=== PATIENT | female | born 1985 | race Caucasian/White ===

== ENCOUNTER 2020-02-17 20:49 | Emergency (ER) | payer SELFPAY ==
[2020-02-18 01:25] VITALS: TEMP 98.3
[2020-02-18 01:29] VITALS: BP 112/63; O2SAT 97
== END 2020-02-18 00:57 | disposition home or self-care (01) ==
LOC: ER 20:49
DX: G40.509 Epileptic seizures related to external causes, not intractable, without status epilepticus (principal)
CPT/HCPCS: 36415; 51702; 80048; 80076; 80307; 81003; 81025; 83690; 83735; 85025; 96360; 96361; 99284; J7040

== ENCOUNTER 2020-02-23 19:56 | Inpatient (IN) | payer SELFPAY ==
--- OUTSIDE RECORDS SUMMARY | 2020-02-23 20:02 | XMS REPORT ---
:1985 Author Organization [facility] t Address [address] [place] [address] Care Team Providers Name Role Phone DR BEN RAMIRES Unavailable Unavailable DR Lisbeth WILLIAMSON Unavailable Unavailable DR Samantha DILLON Unavailable Unavailable DR Earl DILLON Unavailable DR Earl LORD Unavailable RK, Unavailable Unavailable Problems This patient has no known problems. Allergies, Adverse Reactions, Alerts This patient has no known allergies or adverse reactions. Medications This patient has no known medications. Encounters Start End Encounter Admission Attending Care Care Encounter Date/Time Date/Time Type Type Clinicians Facility Department ID 2019-12-29 2019-12-31 Outpatient E CAROL RAMIRES [facility] [id number] 07:46:00 11:03:00 BEN 2019-12-21 2019-12-21 Emergency E TERI [facility] [id number] 16:13:00 21:40:00 EVER 2019-11-24 2019-11-24 Emergency E JUDI [facility] [id number] 13:39:00 13:39:00 2018-08-01 2018-08-01 Emergency E MAGALY DILLON [facility] [id number] 09:51:00 12:30:00 2018-06-09 2018-06-09 Emergency E TERI [facility] [id number] 16:29:00 19:00:00 EVER 2018-05-30 2018-05-30 Emergency E WILMA [facility] [id number] 14:36:00 15:47:00 ALINA 2018-04-19 2018-04-19 Emergency E POP [facility] [id number] 11:42:00 13:57:00 JORGE 2017-12-26 2017-12-26 Emergency E POP [facility] [id number] 22 08:16:00 12:34:00 JORGE Results Test Description Test Time Test Comments Text Results Atomic Results Result Comments URINE MONOCLONAL 2019-12-30 21:15:00 Test Item Value Reference Range Comments PREG UR (test code = PGU) NEGATIVE NEGATIVE [id number] 06:58:00 Test Item Value Reference Range Comments Hb A1C % (test code = HBA) 5.4 % 4.2-6.3 LIPID [id number] 06:56:00 Test Item Value Reference Range Comments CHOLESTROL (test code = 44A) 202 mg/dL 140-200 TRIGLYCERI (test code = 42B) 116 mg/dL <=149 HDL (test code = 83D) 55.0 mg/dL 40.0-60.0 LDL (test code = 34B) 132 mg/dL <=99 CHL/HDL (test code = CHR) 3.7 0.0-3.4 CBC (INCLUDES AUTOMATED DIFFERENTIAL)2019-12-30 06:44:00 Test Item Value Reference Range Comments WBC (test code = WBC) 7.6 10\S\3/uL 4.5-11.0 RBC (test code = RBC) 4.00 10\S\6/uL 4.30-5.70 HGB (test code = HBG) 11.9 g/dL 12.0-15.5 HCT (test code = HCT) 37.1 % 35.0-44.0 MCV (test code = MCV) 92.8 fL 81.0-99.0 MCH (test code = MCH) 29.8 pg 27.0-31.0 MCHC (test code = MCHC) 32.1 g/dL 32.0-36.0 RDW (test code = RDW) 13.3 % 11.5-14.5 PLT (test code = PLT) 283 10\S\3/uL 130-400 MPV (test code = MPV) 10.4 fL 9.4-12.4 NEUTROP # (test code = NE#) 3.1 10\S\3/uL 1.6-8.0 LYMPH # (test code = LY#) 3.2 10\S\3/uL 1.1-3.5 MONOCYTE # (test code = MO#) 0.6 10\S\3/uL 0.0-1.1 EOSINOPH # (test code = EO#) 0.5 10\S\3/uL 0.0-0.7 BASOPHIL # (test code = BA#) 0.1 10\S\3/uL 0.0-0.3 IG # (test code = IG#) 0.02 10\S\3/uL 0.00-0.06 NRBC # (test code = NRBC#) 0.00 10\S\3/uL 0.00-0.01 NEUTROPH % (test code = NE%) 41.3 % 35.0-73.0 LYMPH % (test code = LY%) 42.7 % 20.0-55.0 MONO % (test code = MO%) 8.2 % 2.5-10.0 EOSINOPH % (test code = EO%) 6.2 % 0.0-5.0 BASOPHIL % (test code = BA%) 1.3 % 0.0-2.0 IG % (test code = IG%) 0.3 % 0.0-0.8 NRBC% (test code = NRBC%) 0.0 % 0.0-0.2 MANDIFF (test code = MDIFF) NO NO RBC MORPH (test code = RBCMOR) NORMAL CARDIAC [id number] 22:13:00 Test Item Value Reference Range Comments TROPONIN I (test code = A84) <0.015 ng/mL 0.000-0.045 CARDIAC [id number] 15:17:00 Test Item Value Reference Range Comments TROPONIN I (test code = A84) <0.015 ng/mL 0.000-0.045 [id number] 11:12:00 Test Item Value Reference Range Comments Hb A1C % (test code = HBA) 5.8 % 4.2-6.3 LIPID [id number] 11:07:00 Test Item Value Reference Range Comments CHOLESTROL (test code = 44A) 203 mg/dL 140-200 TRIGLYCERI (test code = 42B) 90 mg/dL <=149 HDL (test code = 83D) 60.0 mg/dL 40.0-60.0 LDL (test code = 34B) 127 mg/dL <=99 CHL/HDL (test code = CHR) 3.4 0.0-3.4 GLUCOMETER GLUCOSE- LAB USE [id number] 09:08:00 Test Item Value Reference Range Comments GLUCOMETER (test code = GMG) 91 mg/dL 70-100 DRUGS OF [id number] 08:34:00 Test Item Value Reference Range Comments DRUG SCRN (test code = HDOA) URINE DRUG SCREEN This is an unconfirmed screening result and should not be used for non-medical purposes CANNABINOD (test code = 88C) Negative NEGATIVE AMPHETAMINE (test code = Negative NEGATIVE 84A) BENZODIAZP (test code = 86A) Negative NEGATIVE BARBITURAT (test code = 85A) Negative NEGATIVE OPIATES (test code = 92B) Negative NEGATIVE COCAINE (test code = 87A) Negative NEGATIVE PHENCYCLID (test code = 66A) Negative NEGATIVE METHADONE (test code = 64A) Negative NEGATIVE DOAH (test code = DOAH.) URINE DRUG SCREEN Cut-off values are as follows: Cannabinoids 50 ng/mL Cocaine 300 ng/mL Amphetamines 1000 ng/mL Phencyclidine 25 ng/mL Benzodiazepines 200 ng.mL Methadone 300 ng/mL Barbiturates 200 ng/mL Opiates 2000 ng/mL [id number] 08:29:00 Test Item Value Reference Range Comments COLOR (test code = COLU) YELLOW YELLOW CLARITY (test code = CLA) CLEAR CLEAR GLUCOSE UR (test code = UA GLUCOSE) NEGATIVE NEGATIVE BILI UR (test code = BILE) NEGATIVE NEGATIVE KETONES UR (test code = TEO) NEGATIVE NEGATIVE SP GRAVITY (test code = SPGR) 1.024 1.005-1.030 PH UR (test code = PH) 5.5 4.5-8.0 PROTEIN UR (test code = PU) NEGATIVE NEGATIVE UROBIL UR (test code = UROQ) 0.2 EU/dL 0.2-1.0 NITRITE UR (test code = NITRITE) NEGATIVE NEGATIVE BLOOD UR (test code = UA BLOOD) NEGATIVE NEGATIVE LEUK ES UR (test code = LEUK) NEGATIVE NEGATIVE BRAIN NATRIURETIC [id number] 07:17:00 Test Item Value Reference Range Comments proBNP (test code = PBNP) 25 pg/mL 0-125 COMPREHENSIVE METABOLIC [id number] 07:15:00 Test Item Value Reference Range Comments GLUCOSE (test code = 06D) 99 mg/dL 75-100 SODIUM (test code = 01A) 139 mmol/L 136-145 POTASSIUM (test code = 01B) 3.4 mmol/L 3.6-5.1 CHLORIDE (test code = 04A) 109 mmol/L 98-107 CO2 (test code = 02A) 23 mmol/L 22-32 ANION GAP (test code = ANG) 10.4 mmol/L BUN (test code = 05D) 17 mg/dL 7-18 CREATININE (test code = 03E) 1.0 mg/dL 0.4-1.1 BUN/CREA (test code = BCR) 17 12-20 CALCIUM (test code = 09D) 9.1 mg/dL 8.3-9.5 BILI TOTAL (test code = 11A) 0.3 mg/dL 0.2-1.0 PROTEIN (test code = 07D) 7.1 g/dL 6.4-8.2 ALBUMIN (test code = 08D) 4.0 g/dL 3.5-4.8 GLOBULIN (test code = GLB) 3.1 g/dL 1.5-3.8 ALB/GLOB (test code = AGRR) 1.3 1.0-2.6 ALK PHOS (test code = 35A) 64 IU/L 42-121 AST (test code = 30A) 19 IU/L <=42 ALT (test code = 31A) 39 IU/L <=78 TROPONIN [id number] 07:15:00 Test Item Value Reference Range Comments TROPONIN I (test code = A84) <0.015 ng/mL 0.000-0.045 PRO TIME AND [id number] 07:10:00 Test Item Value Reference Range Comments PT (test code = TT) 12.3 s 9.8-13.6 INR (test code = INR) 1.1 INRH (test code = INRH) SUGGESTED THERAPEUTIC RANGE FOR INR: 2.5 - 3.5 For Patients with Prosthetic Valves or Patients with recurrent Thromboembolic Events 2.0 - 3.0 For Most Other Applications PTT (test code = PTT) 40.6 s 20.2-38.0 PTTH (test code = PTTH) To monitor the effectiveness of heparin, we offer the Anti-Xa (Heparin Assay). It can be used for either unfractionated or LMW Heparin. Order Code is ANTI-XA [id number] 07:10:00 Test Item Value Reference Range Comments D-DIMER (test code = DDI) 248 ng/mL D-DU 0-234 D-DIMER COMMENT (test code = *Level to rule out DVT or PE: DDCOM) <235 ng/mL D-DU* CBC (INCLUDES AUTOMATED DIFFERENTIAL)2019-12-29 07:05:00 Test Item Value Reference Range Comments WBC (test code = WBC) 8.5 10\S\3/uL 4.5-11.0 RBC (test code = RBC) 4.04 10\S\6/uL 4.30-5.70 HGB (test code = HBG) 11.8 g/dL 12.0-15.5 HCT (test code = HCT) 36.1 % 35.0-44.0 MCV (test code = MCV) 89.4 fL 81.0-99.0 MCH (test code = MCH) 29.2 pg 27.0-31.0 MCHC (test code = MCHC) 32.7 g/dL 32.0-36.0 RDW (test code = RDW) 13.4 % 11.5-14.5 PLT (test code = PLT) 311 10\S\3/uL 130-400 MPV (test code = MPV) 10.6 fL 9.4-12.4 NEUTROP # (test code = NE#) 3.8 10\S\3/uL 1.6-8.0 LYMPH # (test code = LY#) 3.4 10\S\3/uL 1.1-3.5 MONOCYTE # (test code = MO#) 0.7 10\S\3/uL 0.0-1.1 EOSINOPH # (test code = EO#) 0.4 10\S\3/uL 0.0-0.7 BASOPHIL # (test code = BA#) 0.1 10\S\3/uL 0.0-0.3 IG # (test code = IG#) 0.02 10\S\3/uL 0.00-0.06 NRBC # (test code = NRBC#) 0.00 10\S\3/uL 0.00-0.01 NEUTROPH % (test code = NE%) 44.7 % 35.0-73.0 LYMPH % (test code = LY%) 40.4 % 20.0-55.0 MONO % (test code = MO%) 8.7 % 2.5-10.0 EOSINOPH % (test code = EO%) 4.9 % 0.0-5.0 BASOPHIL % (test code = BA%) 1.1 % 0.0-2.0 IG % (test code = IG%) 0.2 % 0.0-0.8 NRBC% (test code = NRBC%) 0.0 % 0.0-0.2 MANDIFF (test code = MDIFF) NO NO RBC MORPH (test code = RBCMOR) NORMAL [id number] 23:08:00 Test Item Value Reference Range Comments LITHIUM (test code = LI) 0.50 mmol/L 0.60-1.50 LIH (test code = LIH) LITHIUM THERAPEUTIC RANGE Acute cecilia: 1.0-1.5 mmol/L Mono-term control 0.6-1.2 mmol/L Toxic level: > 2.0 mmol/L DRUGS OF [id number] 19:39:00 Test Item Value Reference Range Comments DRUG SCRN (test code = HDOA) URINE DRUG SCREEN This is an unconfirmed screening result and should not be used for non-medical purposes CANNABINOD (test code = 88C) Negative NEGATIVE AMPHETAMINE (test code = Negative NEGATIVE 84A) BENZODIAZP (test code = 86A) Negative NEGATIVE BARBITURAT (test code = 85A) Negative NEGATIVE OPIATES (test code = 92B) Negative NEGATIVE COCAINE (test code = 87A) Negative NEGATIVE PHENCYCLID (test code = 66A) Negative NEGATIVE METHADONE (test code = 64A) Negative NEGATIVE DOAH (test code = DOAH.) URINE DRUG SCREEN Cut-off values are as follows: Cannabinoids 50 ng/mL Cocaine 300 ng/mL Amphetamines 1000 ng/mL Phencyclidine 25 ng/mL Benzodiazepines 200 ng.mL Methadone 300 ng/mL Barbiturates 200 ng/mL Opiates 2000 ng/mL [id number] 19:34:00 Test Item Value Reference Range Comments COLOR (test code = COLU) YELLOW YELLOW CLARITY (test code = CLA) CLEAR CLEAR GLUCOSE UR (test code = UA GLUCOSE) NEGATIVE NEGATIVE BILI UR (test code = BILE) NEGATIVE NEGATIVE KETONES UR (test code = TEO) NEGATIVE NEGATIVE SP GRAVITY (test code = SPGR) 1.019 1.005-1.030 PH UR (test code = PH) 7.0 4.5-8.0 PROTEIN UR (test code = PU) NEGATIVE NEGATIVE UROBIL UR (test code = UROQ) 0.2 EU/dL 0.2-1.0 NITRITE UR (test code = NITRITE) NEGATIVE NEGATIVE BLOOD UR (test code = UA BLOOD) NEGATIVE NEGATIVE LEUK ES UR (test code = LEUK) NEGATIVE NEGATIVE CARDIAC [id number] 18:16:00 Test Item Value Reference Range Comments TROPONIN I (test code = A84) <0.015 ng/mL 0.000-0.045 PRO TIME AND [id number] 17:42:00 Test Item Value Reference Range Comments PT (test code = TT) 12.5 s 9.8-13.6 INR (test code = INR) 1.1 INRH (test code = INRH) SUGGESTED THERAPEUTIC RANGE FOR INR: 2.5 - 3.5 For Patients with Prosthetic Valves or Patients with recurrent Thromboembolic Events 2.0 - 3.0 For Most Other Applications PTT (test code = PTT) 37.7 s 20.2-38.0 PTTH (test code = PTTH) To monitor the effectiveness of heparin, we offer the Anti-Xa (Heparin Assay). It can be used for either unfractionated or LMW Heparin. Order Code is ANTI-XA SERUM [id number] 17:20:00 Test Item Value Reference Range Comments PREG SRM (test code = PGS) NEGATIVE NEGATIVE COMPREHENSIVE METABOLIC [id number] 17:17:00 Test Item Value Reference Range Comments GLUCOSE (test code = 06D) 100 mg/dL 75-100 SODIUM (test code = 01A) 140 mmol/L 136-145 POTASSIUM (test code = 01B) 3.8 mmol/L 3.6-5.1 CHLORIDE (test code = 04A) 109 mmol/L 98-107 CO2 (test code = 02A) 26 mmol/L 22-32 ANION GAP (test code = ANG) 8.8 mmol/L BUN (test code = 05D) 15 mg/dL 7-18 CREATININE (test code = 03E) 1.0 mg/dL 0.4-1.1 BUN/CREA (test code = BCR) 15 12-20 CALCIUM (test code = 09D) 9.9 mg/dL 8.3-9.5 BILI TOTAL (test code = 11A) 0.8 mg/dL 0.2-1.0 PROTEIN (test code = 07D) 7.2 g/dL 6.4-8.2 ALBUMIN (test code = 08D) 4.0 g/dL 3.5-4.8 GLOBULIN (test code = GLB) 3.2 g/dL 1.5-3.8 ALB/GLOB (test code = AGRR) 1.2 1.0-2.6 ALK PHOS (test code = 35A) 69 IU/L 42-121 AST (test code = 30A) 23 IU/L <=42 ALT (test code = 31A) 40 IU/L <=78 AMYLASE AND [id number] 17:17:00 Test Item Value Reference Range Comments AMYLASE (test code = 10A) 58 U/L 28-100 LIPASE (test code = 60A) 81 IU/L 73-393 CBC (INCLUDES AUTOMATED DIFFERENTIAL)2019-12-21 17:03:00 Test Item Value Reference Range Comments WBC (test code = WBC) 7.4 10\S\3/uL 4.5-11.0 RBC (test code = RBC) 4.39 10\S\6/uL 4.30-5.70 HGB (test code = HBG) 12.9 g/dL 12.0-15.5 HCT (test code = HCT) 39.3 % 35.0-44.0 MCV (test code = MCV) 89.5 fL 81.0-99.0 MCH (test code = MCH) 29.4 pg 27.0-31.0 MCHC (test code = MCHC) 32.8 g/dL 32.0-36.0 RDW (test code = RDW) 13.2 % 11.5-14.5 PLT (test code = PLT) 297 10\S\3/uL 130-400 MPV (test code = MPV) 10.7 fL 9.4-12.4 NEUTROP # (test code = NE#) 4.0 10\S\3/uL 1.6-8.0 LYMPH # (test code = LY#) 2.3 10\S\3/uL 1.1-3.5 MONOCYTE # (test code = MO#) 0.6 10\S\3/uL 0.0-1.1 EOSINOPH # (test code = EO#) 0.3 10\S\3/uL 0.0-0.7 BASOPHIL # (test code = BA#) 0.1 10\S\3/uL 0.0-0.3 IG # (test code = IG#) 0.01 10\S\3/uL 0.00-0.06 NRBC # (test code = NRBC#) 0.00 10\S\3/uL 0.00-0.01 NEUTROPH % (test code = NE%) 54.7 % 35.0-73.0 LYMPH % (test code = LY%) 31.1 % 20.0-55.0 MONO % (test code = MO%) 8.4 % 2.5-10.0 EOSINOPH % (test code = EO%) 4.3 % 0.0-5.0 BASOPHIL % (test code = BA%) 1.4 % 0.0-2.0 IG % (test code = IG%) 0.1 % 0.0-0.8 NRBC% (test code = NRBC%) 0.0 % 0.0-0.2 MANDIFF (test code = MDIFF) NO NO RBC MORPH (test code = RBCMOR) NORMAL DRUGS OF [id number] 11:59:00 Test Item Value Reference Range Comments DRUG SCRN (test code = HDOA) URINE DRUG SCREEN This is an unconfirmed screening result and should not be used for non-medical purposes CANNABINOD (test code = 88C) Negative NEGATIVE AMPHETAMINE (test code = Negative NEGATIVE 84A) BENZODIAZP (test code = 86A) Negative NEGATIVE BARBITURAT (test code = 85A) Negative NEGATIVE OPIATES (test code = 92B) Negative NEGATIVE COCAINE (test code = 87A) Negative NEGATIVE PHENCYCLID (test code = 66A) Negative NEGATIVE METHADONE (test code = 64A) Negative NEGATIVE DOAH (test code = DOAH) URINE DRUG CREEN CUT OFF VALUES Amphetamines 1000 ng/mL Barbituates 300 ng/mL Benzodiazepines 300 ng/mL Cocaine 300 ng/mL Opiates 300 ng/mL Phencyclidine 25 ng/mL THC 50 ng/mL Tricyclic Antidepressants 1000 ng/mL CARDIAC [id number] 11:08:00 Test Item Value Reference Range Comments TROPONIN I (test code = A84) <0.015 ng/mL 0.000-0.045 CKMB (test code = A49) <1.0 ng/mL <=3.6 CPK (test code = 32A) 62 IU/L 26-192 COMPREHENSIVE METABOLIC [id number] 11:07:00 Test Item Value Reference Range Comments GLUCOSE (test code = 06D) 82 mg/dL 75-100 SODIUM (test code = 01A) 142 mmol/L 136-145 POTASSIUM (test code = 01B) 3.7 mmol/L 3.6-5.1 CHLORIDE (test code = 04A) 108 mmol/L 98-107 CO2 (test code = 02A) 23 mmol/L 22-32 ANION GAP (test code = ANG) 14.7 mmol/L BUN (test code = 05D) 10 mg/dL 7-18 CREATININE (test code = 03E) 0.8 mg/dL 0.4-1.1 BUN/CREA (test code = BCR) 12 12-20 CALCIUM (test code = 09D) 9.3 mg/dL 8.3-9.5 BILI TOTAL (test code = 11A) 0.4 mg/dL 0.2-1.0 PROTEIN (test code = 07D) 6.7 g/dL 6.4-8.2 ALBUMIN (test code = 08D) 4.0 g/dL 3.5-4.8 GLOBULIN (test code = GLB) 2.7 g/dL 1.5-3.8 ALB/GLOB (test code = AGRR) 1.5 1.0-2.6 ALK PHOS (test code = 35A) 55 IU/L 42-121 AST (test code = 30A) 11 IU/L <=42 ALT (test code = 31A) 20 IU/L <=78 XR CHEST 1 VIEW [id number] 10:58:26Portable AP chest, 1 viewLocation Code: [id number] HISTORY: [id number]: DyspneaCOMPARISON: 04/19/18COMMENT: The lungs are clear and well inflated. The costophrenic angles are sharp. Thecardiomediastinalsilhouette is unremarkable. The bones are intact.IMPRESSION: No acute [id number] 10:56:00 Test Item Value Reference Range Comments COLOR (test code = COLU) YELLOW YELLOW CLARITY (test code = CLA) CLEAR CLEAR GLUCOSE UR (test code = UA GLUCOSE) NEGATIVE NEGATIVE BILI UR (test code = BILE) NEGATIVE NEGATIVE KETONES UR (test code = TEO) NEGATIVE NEGATIVE SP GRAVITY (test code = SPGR) 1.012 1.005-1.030 PH UR (test code = PH) 7.5 4.5-8.0 PROTEIN UR (test code = PU) NEGATIVE NEGATIVE UROBIL UR (test code = UROQ) 0.2 EU/dL 0.2-1.0 NITRITE UR (test code = NITRITE) NEGATIVE NEGATIVE BLOOD UR (test code = UA BLOOD) NEGATIVE NEGATIVE LEUK ES UR (test code = LEUK) NEGATIVE NEGATIVE URINE [id number] 10:52:00 Test Item Value Reference Range Comments PREG UR (test code = PGU) NEGATIVE NEGATIVE CBC (INCLUDES AUTOMATED DIFFERENTIAL)2018-08-01 10:50:00 Test Item Value Reference Range Comments WBC (test code = WBC) 5.9 10\S\3/uL 4.5-11.0 RBC (test code = RBC) 3.84 10\S\6/uL 4.30-5.70 HGB (test code = HBG) 11.9 g/dL 12.0-15.5 HCT (test code = HCT) 35.5 % 35.0-44.0 MCV (test code = MCV) 92.4 fL 81.0-99.0 MCH (test code = MCH) 31.0 pg 27.0-31.0 MCHC (test code = MCHC) 33.5 g/dL 32.0-36.0 RDW (test code = RDW) 12.4 % 11.5-14.5 PLT (test code = PLT) 262 10\S\3/uL 130-400 MPV (test code = MPV) 12.2 fL 9.4-12.4 NEUTROP # (test code = NE#) 2.9 10\S\3/uL 1.6-8.0 LYMPH # (test code = LY#) 2.4 10\S\3/uL 1.1-3.5 MONOCYTE # (test code = MO#) 0.5 10\S\3/uL 0.0-1.1 EOSINOPH # (test code = EO#) 0.1 10\S\3/uL 0.0-0.7 BASOPHIL # (test code = BA#) 0.0 10\S\3/uL 0.0-0.3 IG # (test code = IG#) 0.01 10\S\3/uL 0.00-0.06 NRBC # (test code = NRBC#) 0.00 10\S\3/uL 0.00-0.01 NEUTROPH % (test code = NE%) 48.8 % 35.0-73.0 LYMPH % (test code = LY%) 40.5 % 20.0-55.0 MONO % (test code = MO%) 7.6 % 2.5-10.0 EOSINOPH % (test code = EO%) 2.2 % 0.0-5.0 BASOPHIL % (test code = BA%) 0.7 % 0.0-2.0 IG % (test code = IG%) 0.2 % 0.0-0.8 NRBC% (test code = NRBC%) 0.0 % 0.0-0.2 MANDIFF (test code = MDIFF) NO NO RBC MORPH (test code = RBCMOR) NORMAL CT HEAD W/O [id number] 10:45:31CT brain without contrast.Location code: [id number] HISTORY: R55: SYNCOPE AND COLLAPSE COMPARISON:02/02/2017TECHNIQUE: Routine unenhanced axial imaging of the brain was performed. Coronal and sagitt al reformatted images were obtained, as well. Automaticexposure control was utilized. Total DLP: 858 mGycmFINDINGS: There is no acute intracranial hemorrhage or extra-axial collection.There is no hydrocephalus, midline shift, or space occupying mass. Goodman-whitematter differentiation is well preservedwith no definite CT evidence of anacute infarct. The cranial vault and skull base are intact. Theparanasal sinuses and mastoidair cells are pneumatized and well aerated. IMPRESSION: No acute intracranial abnormality.CT ABDOMEN AND PELVIS WITH [id number] 19:01:49LOCATION: [id number]: 33-year-old female with abdominal pain.COMMENT: Field 3Axial CT imaging of this patient's abdomen and pelvis was obtained during andafter IV contrast injection. Coronal and sagittal soft tissue reconstructionswere included. An older examination of 04/19/18 is available for comparison.One or more of the following dose reduction techniques are used: Automatedexposure control, adjustment of the mA and/or kV according the patient size,and/or utilization of iterative reconstruction technique.DLP: 2616 mGy-cmCONTRAST: 100 mL of Omnipaque 300 nonionic contrast was injected until a veinof the left hand. Serum creatinine level was 0.8.FINDINGS:The lung bases are clear. The cardiac silhouette is unremarkable.The liver, spleen, pancreas, adrenal glands, kidneys, and gallbladder areunremarkable. Bilateral renal function is seen on the delayed study.The upper intestinal tract, small intestine, appendix, and colon areunremarkable.There is no ascites or adenopathy present.In the pelvis the urinary bladder, uterus, and ovaries are unremarkable.The vascular anatomy is unremarkable.The musculoskeletal anatomy is unremarkable.IMPRESSION:Unremarkable CT examination of the abdomen and pelvis. AMYLASE AND [id number] 17:53:00 Test Item Value Reference Range Comments AMYLASE (test code = 10A) 48 U/L 28-100 LIPASE (test code = 60A) 109 IU/L 73-393 COMPREHENSIVE METABOLIC [id number] 17:53:00 Test Item Value Reference Range Comments GLUCOSE (test code = 06D) 91 mg/dL 75-100 SODIUM (test code = 01A) 141 mmol/L 136-145 POTASSIUM (test code = 01B) 3.6 mmol/L 3.6-5.1 CHLORIDE (test code = 04A) 108 mmol/L 98-107 CO2 (test code = 02A) 23 mmol/L 22-32 ANION GAP (test code = ANG) 13.6 mmol/L BUN (test code = 05D) 12 mg/dL 7-18 CREATININE (test code = 03E) 0.8 mg/dL 0.4-1.1 BUN/CREA (test code = BCR) 16 12-20 CALCIUM (test code = 09D) 9.4 mg/dL 8.3-9.5 BILI TOTAL (test code = 11A) 0.5 mg/dL 0.2-1.0 PROTEIN (test code = 07D) 7.1 g/dL 6.4-8.2 ALBUMIN (test code = 08D) 4.0 g/dL 3.5-4.8 GLOBULIN (test code = GLB) 3.1 g/dL 1.5-3.8 ALB/GLOB (test code = AGRR) 1.3 1.0-2.6 ALK PHOS (test code = 35A) 67 IU/L 42-121 AST (test code = 30A) 16 IU/L <=42 ALT (test code = 31A) 22 IU/L <=78 [id number] 17:48:00 Test Item Value Reference Range Comments MAGNESIUM (test code = 48A) 1.8 mg/dL 1.8-2.4 DRUGS OF [id number] 17:48:00 Test Item Value Reference Range Comments DRUG SCRN (test code = HDOA) URINE DRUG SCREEN This is an unconfirmed screening result and should not be used for non-medical purposes CANNABINOD (test code = 88C) Negative NEGATIVE AMPHETAMINE (test code = Negative NEGATIVE 84A) BENZODIAZP (test code = 86A) Negative NEGATIVE BARBITURAT (test code = 85A) Negative NEGATIVE OPIATES (test code = 92B) Negative NEGATIVE COCAINE (test code = 87A) Negative NEGATIVE PHENCYCLID (test code = 66A) Negative NEGATIVE METHADONE (test code = 64A) Negative NEGATIVE DOAH (test code = DOAH) URINE DRUG SCREEN Cut-off values are as follows: ---- Cannabinoids 50 ng/mL Cocaine 300 ng/mL Amphetamines 1000 ng/mL Phencyclidine 25 ng/mL Benzodiazepines 200 ng.mL Methadone 300 ng/mL Barbiturates 200 ng/mL Opiates 2000 ng/mL PRO TIME AND [id number] 17:47:00 Test Item Value Reference Range Comments PT (test code = TT) 12.2 s 9.8-13.6 INR (test code = INR) 1.1 INRH (test code = INRH) SUGGESTED THERAPEUTIC RANGE FOR INR: 2.5 - 3.5 For Patients with Prosthetic Valves or Patients with recurrent Thromboembolic Events 2.0 - 3.0 For Most Other Applications PTT (test code = PTT) 34.0 s 20.2-38.0 PTTH (test code = PTTH) To monitor the effectiveness of heparin, we offer the Anti-Xa (Heparin Assay). It can be used for either unfractionated or LMW Heparin. Order Code is ANTI-XA SERUM [id number] 17:46:00 Test Item Value Reference Range Comments PREG SRM (test code = PGS) NEGATIVE NEGATIVE URINALYSIS WITH [id number] 17:43:00 Test Item Value Reference Range Comments COLOR (test code = COLU) YELLOW YELLOW CLARITY (test code = CLA) CLOUDY CLEAR GLUCOSE UR (test code = UA GLUCOSE) NEGATIVE NEGATIVE BILI UR (test code = BILE) NEGATIVE NEGATIVE KETONES UR (test code = TEO) NEGATIVE NEGATIVE SP GRAVITY (test code = SPGR) 1.023 1.005-1.030 PH UR (test code = PH) 8.0 4.5-8.0 PROTEIN UR (test code = PU) NEGATIVE NEGATIVE UROBIL UR (test code = UROQ) 0.2 EU/dL 0.2-1.0 NITRITE UR (test code = NITRITE) NEGATIVE NEGATIVE BLOOD UR (test code = UA BLOOD) NEGATIVE NEGATIVE LEUK ES UR (test code = LEUK) NEGATIVE NEGATIVE WBC UR (test code = UWBC) 0 /HPF 0-5 RBC UR (test code = URBC) 0 /HPF 0-2 EPITH UR (test code = UEPC) FEW /LPF FEW BACTERIA UR (test code = UBACT) FEW /HPF NONE CAST UR (test code = CAST) /LPF NONE CRYSTAL UR (test code = CRYU) / LPF NONE MUCUS UR (test code = MUC) FEW / HPF NONE AMORPH UR (test code = LEONID) / HPF NONE TRICH UR (test code = UTRICH) /HPF NONE YEAST UR (test code = UY) /HPF NONE SPERM UR (test code = USPERM) /HPF NONE CBC (INCLUDES AUTOMATED DIFFERENTIAL)[id number] 17:39:00 Test Item Value Reference Range Comments WBC (test code = WBC) 9.0 10\S\3/uL 4.5-11.0 RBC (test code = RBC) 4.01 10\S\6/uL 4.30-5.70 HGB (test code = HBG) 12.6 g/dL 12.0-15.5 HCT (test code = HCT) 36.9 % 35.0-44.0 MCV (test code = MCV) 92.0 fL 81.0-99.0 MCH (test code = MCH) 31.4 pg 27.0-31.0 MCHC (test code = MCHC) 34.1 g/dL 32.0-36.0 RDW (test code = RDW) 12.8 % 11.5-14.5 PLT (test code = PLT) 293 10\S\3/uL 130-400 MPV (test code = MPV) 11.9 fL 9.4-12.4 NEUTROP # (test code = NE#) 5.3 10\S\3/uL 1.6-8.0 LYMPH # (test code = LY#) 2.6 10\S\3/uL 1.1-3.5 MONOCYTE # (test code = MO#) 0.7 10\S\3/uL 0.0-1.1 EOSINOPH # (test code = EO#) 0.4 10\S\3/uL 0.0-0.7 BASOPHIL # (test code = BA#) 0.1 10\S\3/uL 0.0-0.3 IG # (test code = IG#) 0.02 10\S\3/uL 0.00-0.06 NRBC # (test code = NRBC#) 0.00 10\S\3/uL 0.00-0.01 NEUTROPH % (test code = NE%) 58.7 % 35.0-73.0 LYMPH % (test code = LY%) 28.7 % 20.0-55.0 MONO % (test code = MO%) 7.4 % 2.5-10.0 EOSINOPH % (test code = EO%) 4.1 % 0.0-5.0 BASOPHIL % (test code = BA%) 0.9 % 0.0-2.0 IG % (test code = IG%) 0.2 % 0.0-0.8 NRBC% (test code = NRBC%) 0.0 % 0.0-0.2 MANDIFF (test code = MDIFF) NO NO RBC MORPH (test code = RBCMOR) NORMAL CT ABDOMEN AND PELVIS W/O [id number] 13:45:07CT abdomen and pelvis without intravenous contrast.Location Code: [id number] HISTORY: R10.11: RIGHT U PPER QUADRANT PAINCOMPARISON: NoneTechnique: Helical CT of the abdomen and pelvis was performed without injury iscontrast. Thin section axial, sagittal and coronal images were obtained. One ormore of the following dose reduction techniques were used: Automated exposurecontrol, adjustment of the mA andor KV according to patient size, and/orutilization of iterative reconstruction technique. DLP: 506.68 mGy-cm.FINDINGS:The lung bases are clear. The unenhanced liver, gallbladder, adrenal glands, kidneys, pancreas, andspleen are unremarkable.The unopacified loops of bowel demonstrate no focal thickening or dilatation.The appendix is visualized and is normal. There is no free peritoneal air orfluid. The abdominal aorta is normal in caliber and contour. There is noretroperitoneal mass or fluid collection. The urinary bladder is unremarkable.There is no pelvic mass or fluid collection. No evidence of diverticulitis.The bones, skin, and surrounding soft tissues are unremarkable.IMPRESSION: No acute intra-abdominal or pelvic pathology.AMYLASE AND [id number] 13:18:00 Test Item Value Reference Range Comments AMYLASE (test code = 10A) 45 U/L 28-100 LIPASE (test code = 60A) 80 IU/L 73-393 COMPREHENSIVE METABOLIC [id number] 13:18:00 Test Item Value Reference Range Comments GLUCOSE (test code = 06D) 94 mg/dL 75-100 SODIUM (test code = 01A) 141 mmol/L 136-145 POTASSIUM (test code = 01B) 3.4 mmol/L 3.6-5.1 CHLORIDE (test code = 04A) 108 mmol/L 98-107 CO2 (test code = 02A) 24 mmol/L 22-32 ANION GAP (test code = ANG) 12.4 mmol/L BUN (test code = 05D) 7 mg/dL 7-18 CREATININE (test code = 03E) 0.9 mg/dL 0.4-1.1 BUN/CREA (test code = BCR) 8 12-20 CALCIUM (test code = 09D) 9.1 mg/dL 8.3-9.5 BILI TOTAL (test code = 11A) 0.3 mg/dL 0.2-1.0 PROTEIN (test code = 07D) 7.7 g/dL 6.4-8.2 ALBUMIN (test code = 08D) 3.9 g/dL 3.5-4.8 GLOBULIN (test code = GLB) 3.8 g/dL 1.5-3.8 ALB/GLOB (test code = AGRR) 1.0 1.0-2.6 ALK PHOS (test code = 35A) 73 IU/L 42-121 AST (test code = 30A) 14 IU/L <=42 ALT (test code = 31A) 24 IU/L <=78 URINALYSIS WITH [id number] 13:17:00 Test Item Value Reference Range Comments COLOR (test code = COLU) YELLOW YELLOW CLARITY (test code = CLA) CLOUDY CLEAR GLUCOSE UR (test code = UA GLUCOSE) NEGATIVE NEGATIVE BILI UR (test code = BILE) NEGATIVE NEGATIVE KETONES UR (test code = TEO) NEGATIVE NEGATIVE SP GRAVITY (test code = SPGR) 1.029 1.005-1.030 PH UR (test code = PH) 6.0 4.5-8.0 PROTEIN UR (test code = PU) TRACE NEGATIVE UROBIL UR (test code = UROQ) 1.0 EU/dL 0.2-1.0 NITRITE UR (test code = NITRITE) NEGATIVE NEGATIVE BLOOD UR (test code = UA BLOOD) NEGATIVE NEGATIVE LEUK ES UR (test code = LEUK) NEGATIVE NEGATIVE WBC UR (test code = UWBC) 0 /HPF 0-5 RBC UR (test code = URBC) 0 /HPF 0-2 EPITH UR (test code = UEPC) FEW /LPF FEW BACTERIA UR (test code = UBACT) NONE /HPF NONE MUCUS UR (test code = MUC) FEW / HPF NONE [id number] 13:13:00 Test Item Value Reference Range Comments MAGNESIUM (test code = 48A) 2.0 mg/dL 1.8-2.4 PRO TIME AND [id number] 13:09:00 Test Item Value Reference Range Comments PT (test code = TT) 11.5 s 9.8-13.6 INR (test code = INR) 1.0 INRH (test code = INRH) SUGGESTED THERAPEUTIC RANGE FOR INR: 2.5 - 3.5 For Patients with Prosthetic Valves or Patients with recurrent Thromboembolic Events 2.0 - 3.0 For Most Other Applications PTT (test code = PTT) 28.8 s 20.2-38.0 PTTH (test code = PTTH) To monitor the effectiveness of heparin, we offer the Anti-Xa (Heparin Assay). It can be used for either unfractionated or LMW Heparin. Order Code is ANTI-XA SERUM [id number] 13:09:00 Test Item Value Reference Range Comments PREG SRM (test code = PGS) NEGATIVE NEGATIVE CBC (INCLUDES AUTOMATED DIFFERENTIAL)2018-04-19 13:01:00 Test Item Value Reference Range Comments WBC (test code = WBC) 8.5 10\S\3/uL 4.5-11.0 RBC (test code = RBC) 4.02 10\S\6/uL 4.30-5.70 HGB (test code = HBG) 12.7 g/dL 12.0-15.5 HCT (test code = HCT) 37.3 % 35.0-44.0 MCV (test code = MCV) 92.8 fL 81.0-99.0 MCH (test code = MCH) 31.6 pg 27.0-31.0 MCHC (test code = MCHC) 34.0 g/dL 32.0-36.0 RDW (test code = RDW) 12.6 % 11.5-14.5 PLT (test code = PLT) 266 10\S\3/uL 130-400 MPV (test code = MPV) 11.4 fL 9.4-12.4 NEUTROP # (test code = NE#) 6.1 10\S\3/uL 1.6-8.0 LYMPH # (test code = LY#) 1.8 10\S\3/uL 1.1-3.5 MONOCYTE # (test code = MO#) 0.5 10\S\3/uL 0.0-1.1 EOSINOPH # (test code = EO#) 0.0 10\S\3/uL 0.0-0.7 BASOPHIL # (test code = BA#) 0.0 10\S\3/uL 0.0-0.3 IG # (test code = IG#) 0.01 10\S\3/uL 0.00-0.06 NRBC # (test code = NRBC#) 0.00 10\S\3/uL 0.00-0.01 NEUTROPH % (test code = NE%) 71.8 % 35.0-73.0 LYMPH % (test code = LY%) 20.9 % 20.0-55.0 MONO % (test code = MO%) 6.3 % 2.5-10.0 EOSINOPH % (test code = EO%) 0.5 % 0.0-5.0 BASOPHIL % (test code = BA%) 0.4 % 0.0-2.0 IG % (test code = IG%) 0.1 % 0.0-0.8 NRBC% (test code = NRBC%) 0.0 % 0.0-0.2 MANDIFF (test code = MDIFF) NO NO RBC MORPH (test code = RBCMOR) NORMAL XR CHEST 1 VIEW [id number] 12:24:14EXAMINATION: XR CHEST 1 VIEW PORTABLE.LOCATION: D4.HISTORY: Dyspnea.COMPARISON: Chest x-ray and CTA chest 12/26/2017.FINDINGS:Examination is limited due to portable technique and patient body habitus.Cardiac silhouette/Mediastinal contour: Within normal limits. Lungs: No focal consolidation. No large pleural effusion. Osseous Structures: No acute osseous abnormalities.IMPRESSION: No focal consolidation.CT PE [id number] 11:38:49CT CHEST WITH CONTRAST, PE PROTOCOL:Location code: [id number] HISTORY: R52: PAIN, UNSPECIFIEDCOMPARISON: NoneTECHNIQUE: Following the administration of a timed IV contrast bolus, helicalCT of the chest was performed. Thin section axial, coronal, and sagittalimages were obtained. Oblique sagittal maximum intensity reformatted images ofthe pulmonary arteries were also obtained. Automatic exposure control wasutilized. Total DLP: 708 mGycmFINDINGS: There is no filling defect within the pulmonary arteries to suggest pulmonaryembolus. The aorta is of normal caliber and contour. The lungs are clear. There is no consolidation or effusion. The centralairways are patent.There is no mediastinal adenopathy or mass. There is no pericardial effusion. Images through the upper abdomen are unremarkable.The bones, skin and surrounding soft tissues are unremarkable. IMPRESSION:1. Negative for PE2. No acute intrathoracic abnormality. SERUM [id number] 11:09:00 Test Item Value Reference Range Comments PREG SRM (test code = PGS) NEGATIVE NEGATIVE [id number] 09:15:00 Test Item Value Reference Range Comments CPK (test code = 32A) 90 IU/L 26-192 TROPONIN [id number] 09:14:00 Test Item Value Reference Range Comments TROPONIN I (test code = A84) <0.015 ng/mL 0.000-0.045 BASIC METABOLIC [id number] 09:12:00 Test Item Value Reference Range Comments GLUCOSE (test code = 06D) 101 mg/dL 75-100 SODIUM (test code = 01A) 139 mmol/L 136-145 POTASSIUM (test code = 01B) 3.7 mmol/L 3.6-5.1 CHLORIDE (test code = 04A) 108 mmol/L 98-107 CO2 (test code = 02A) 22 mmol/L 22-32 ANION GAP (test code = ANG) 12.7 mmol/L BUN (test code = 05D) 10 mg/dL 7-18 CREATININE (test code = 03E) 0.9 mg/dL 0.4-1.1 BUN/CREA (test code = BCR) 12 12-20 CALCIUM (test code = 09D) 8.9 mg/dL 8.3-9.5 [id number] 09:11:00 Test Item Value Reference Range Comments D-DIMER (test code = DDI) 417 ng/mL D-DU 0-234 D-DIMER COMMENT (test code = *Level to rule out DVT or PE: DDCOM) <235 ng/mL D-DU* CBC (INCLUDES AUTOMATED DIFFERENTIAL)2017-12-26 08:57:00 Test Item Value Reference Range Comments WBC (test code = WBC) 6.9 10\S\3/uL 4.5-11.0 RBC (test code = RBC) 4.08 10\S\6/uL 4.30-5.70 HGB (test code = HBG) 12.8 g/dL 12.0-15.5 HCT (test code = HCT) 37.9 % 35.0-44.0 MCV (test code = MCV) 92.9 fL 81.0-99.0 MCH (test code = MCH) 31.4 pg 27.0-31.0 MCHC (test code = MCHC) 33.8 g/dL 32.0-36.0 RDW (test code = RDW) 12.5 % 11.5-14.5 PLT (test code = PLT) 279 10\S\3/uL 130-400 MPV (test code = MPV) 11.3 fL 9.4-12.4 NEUTROP # (test code = NE#) 3.2 10\S\3/uL 1.6-8.0 LYMPH # (test code = LY#) 2.8 10\S\3/uL 1.1-3.5 MONOCYTE # (test code = MO#) 0.7 10\S\3/uL 0.0-1.1 EOSINOPH # (test code = EO#) 0.2 10\S\3/uL 0.0-0.7 BASOPHIL # (test code = BA#) 0.1 10\S\3/uL 0.0-0.3 IG # (test code = IG#) 0.01 10\S\3/uL 0.00-0.06 NRBC # (test code = NRBC#) 0.00 10\S\3/uL 0.00-0.01 NEUTROPH % (test code = NE%) 46.7 % 35.0-73.0 LYMPH % (test code = LY%) 40.1 % 20.0-55.0 MONO % (test code = MO%) 10.2 % 2.5-10.0 EOSINOPH % (test code = EO%) 2.2 % 0.0-5.0 BASOPHIL % (test code = BA%) 0.7 % 0.0-2.0 IG % (test code = IG%) 0.1 % 0.0-0.8 NRBC% (test code = NRBC%) 0.0 % 0.0-0.2 MANDIFF (test code = MDIFF) NO NO RBC MORPH (test code = RBCMOR) NORMAL XR CHEST 1 VIEW [id number] 08:53:27Portable AP chest, 1 viewLocation Code: [id number] HISTORY: R52: PAIN, UNSPECIFIEDCOMPARISON: 02/02/2017COMMENT: The lungs are clear and well inflated. The costophrenic angles are sharp. Thecardiomediastinal silhouette is unremarkable. The bones are intact.IMPRESSION: Stable chest with no acute abnormality.CARDIAC PROFILE 2017-02-08 08:58:00 Test Item Value Reference Range Comments TROPONIN I (test code = A84) <0.015 ng/mL 0.000-0.045 CKMB (test code = A49) <1.0 ng/mL <=3.6 CPK (test code = 32A) 115 IU/L 26-192 URINE [id number] 11:40:00 Test Item Value Reference Range Comments Isolate 1 (test code = ISO1) Escherichia coli ampicillin (test code = am) ug/mL piperacillin/tazobactam (test code = tzp) ug/mL cefazolin (test code = cz) ug/mL ceftazidime (test code = mary) ug/mL ceftriaxone1 (test code = ctr) ug/mL cefepime (test code = fep) ug/mL aztreonam (test code = azm) ug/mL ertapenem (test code = etp) ug/mL meropenem (test code = mem) ug/mL gentamicin (test code = gm) ug/mL tobramycin (test code = tob) ug/mL levofloxacin (test code = lev) ug/mL nitrofurantoin (test code = ftn) ug/mL trimethoprim/sulfamethoxazole (test code = ug/mL sxt) MRA NECK W/O [id number] 15:44:12EXAM: MRA NECK WITHOUT CONTRASTINDICATION: SeizureCOMPARISON: None availableTECHNIQUE: [id number]-ci-[id number] MR angiogram of the neck was obtained, with 3D spinand tumble reformats.IV contrast: NoneFINDINGS: Both common and internal carotid arteries have normal caliber and contour.The vertebral arteries are patent and normal in caliber.IMPRESSION: Normal MRA of the neck without contrast.LOCATION: R16MRA HEAD W/O [id number] 15:42:17EXAM: MRA BRAIN WITHOUT CONTRASTINDICATION: SeizureCOMPARISON: MRI dated February 03, 2017TECHNIQUE: Two-dimensional time of flight brain MR angiography of the brain isperformed, and MIP reformatted images are presented in multiple 3-D rotationalprojections.IV contrast: None.DISCUSSION:The cervical, petrous, cavernous and supraclinoid internal carotid arteries arewidely patent. The middle and anterior cerebral arteries are normal with nofocal stenosis. The anterior and right posterior communicating arteries arepatent. The vertebral arteries are normal. The vertebrobasilar junction and basilarartery are normal. The posterior cerebral and superior cerebellar arteries arepatent. There is visualization of the bilateral PICAs.There is no aneurysm or vascular malformation.IMPRESSION:1. No vascular stenosis, vessel occlusion, aneurysm or vascular malformationis identified.LOCATION: R16MRI BRAIN W/ AND W/O [id number] 15:38:10MRI brain with and without contrastLocation code: [id number] history: SeizureTechnique: Multiplanar multisequence MR imaging of the brain was performed withand without contrast. No prior study is available for comparison.Findings: There is no abnormal enhancement, mass, or lesion. There is nohydrocephalus, intracranial edema, or midline shift. There is no area ofrestricted diffusion to suggest acute or recent infarct. There is no acuteintracranial hemorrhage or extra-axial collection. The posterior fossa and internal auditory canals are unremarkable. The orbits,globes, sinuses, and skull base are unremarkable.Impression: Normal MRI of the brain with and without contrast.CARDIAC [id number] 12:51:00 Test Item Value Reference Range Comments TROPONIN I (test code = A84) <0.015 ng/mL 0.000-0.045 CKMB (test code = A49) <1.0 ng/mL <=3.6 CPK (test code = 32A) 3045 IU/L -192 CARDIAC [id number] 05:57:00 Test Item Value Reference Range Comments TROPONIN I (test code = A84) <0.015 ng/mL 0.000-0.045 CKMB (test code = A49) <1.0 ng/mL <=3.6 CPK (test code = 32A) 2326 IU/L -192 BASIC METABOLIC [id number] 05:43:00 Test Item Value Reference Range Comments GLUCOSE (test code = 06D) 92 mg/dL 75-100 SODIUM (test code = 01A) 143 mmol/L 136-145 POTASSIUM (test code = 01B) 3.6 mmol/L 3.6-5.1 CHLORIDE (test code = 04A) 111 mmol/L 98-107 CO2 (test code = 02A) 24 mmol/L 22-32 ANION GAP (test code = ANG) 11.6 mmol/L BUN (test code = 05D) 16 mg/dL 7-18 CREATININE (test code = 03E) 0.8 mg/dL 0.4-1.1 BUN/CREA R (test code = BCR) 19 12-20 CALCIUM (test code = 09D) 8.0 mg/dL 8.3-9.5 CBC (INCLUDES AUTOMATED DIFFERENTIAL)2017-02-03 05:04:00 Test Item Value Reference Range Comments WBC (test code = WBC) 6.7 10\S\3/uL 4.5-11.0 RBC (test code = RBC) 3.46 10\S\6/uL 4.30-5.70 HGB (test code = HBG) 10.7 g/dL 12.0-15.5 HCT (test code = HCT) 32.2 % 35.0-44.0 MCV (test code = MCV) 93.1 fL 81.0-99.0 MCH (test code = MCH) 30.9 pg 27.0-31.0 MCHC (test code = MCHC) 33.2 g/dL 32.0-36.0 RDW (test code = RDW) 12.5 % 11.5-14.5 PLT (test code = PLT) 226 10\S\3/uL 130-400 MPV (test code = MPV) 11.5 fL 9.4-12.4 NEUTROP # (test code = NE#) 3.6 10\S\3/uL 1.6-8.0 LYMPH # (test code = LY#) 2.2 10\S\3/uL 1.1-3.5 MONOCYTE # (test code = MO#) 0.7 10\S\3/uL 0.0-1.1 EOSINOPH # (test code = EO#) 0.1 10\S\3/uL 0.0-0.7 BASOPHIL # (test code = BA#) 0.1 10\S\3/uL 0.0-0.3 IG # (test code = IG#) 0.02 10\S\3/uL 0.00-0.06 NRBC # (test code = NRBC#) 0.00 10\S\3/uL 0.00-0.01 NEUTROPH % (test code = NE%) 54.2 % 35.0-73.0 LYMPH % (test code = LY%) 32.5 % 20.0-55.0 MONO % (test code = MO%) 10.2 % 2.5-10.0 EOSINOPH % (test code = EO%) 2.1 % 0.0-5.0 BASOPHIL % (test code = BA%) 0.7 % 0.0-2.0 IG % (test code = IG%) 0.3 % 0.0-0.8 NRBC% (test code = NRBC%) 0.0 % 0.0-0.2 MANDIFF (test code = MDIFF) NO NO RBC MORPH (test code = RBCMOR) NORMAL XR RIBS RIGHT UNIL 3VW W/PA [id number] 23:57:50CHEST RADIOGRAPH; RIGHT RIB RADIOGRAPHS, 4 VIEWSAfter hours services performed at 2325 hours. LOCATION: [id number]: Injury from Fall.TECHNIQUE: PA radiograph of the chest; AP and oblique radiographsof the rightribs.COMPARISON: None.FINDINGS:The lungs are clear. There is no pneumothorax. The cardiomediastinal silhouetteis normal. No acute fracture is visualized.IMPRESSION:No acute fracture. No acute cardiopulmonary disease.[id number] 22:45:00 Test Item Value Reference Range Comments SALICYLATE (test code = 94B) 2.2 mg/dL 2.8-20.0 CT CERVICAL SPINE W/O [id number] 22:33:18CT brain and cervical spine without contrast.Location code: [id number] HISTORY: neck pain, fall CO MPARISON: None availableTECHNIQUE: Routine unenhanced axial imaging of the brain and cervical spinewas performed with sagittal and coronal reformats of the cervical spine. Automatic exposure control was utilized. FINDINGS: There is no acute intracranial hemorrhage or extra-axial collection. There isno hydrocephalus, midline shift, or significant mass effect demonstrated.Goodman-white matter differentiation is relatively well preserved with no definiteCT evidence of an acute infarct. The visualized paranasal sinuses and mastoid air cells are pneumatized and wellaerated. Cervical spine is visualized from C1 through C7. There is no evidence of acutefracture or subluxation. No prevertebral soft tissue swelling or significantdegenerative changes are visualized.IMPRESSION: No noncontrast CT evidenceof an acute intracranial abnormality, acute cervicalspine fracture or subluxation.CT HEAD W/O [id number] 22:33:18CT brain and cervical spine without contrast.Location code: [id number] HISTORY: neck pain, fall COMPARISON: None availableTECHNIQUE: Routine unenhanced axial imaging of the brain and cervical spinewas performed with sagittal and coronal reformats of the cervical spine. Automatic exposure control was utilized. FINDINGS: There is no acute intracranial hemorrhage or extra-axial collection. There isno hydrocephalus, midline shift, or significant mass effect demonstrated.Goodman-white matter differentiation is relatively well preserved with no definiteCT evidence of an acute infarct. The visualized paranasal sinuses and mastoid air cells are pneumatized and wellaerated. Cervical spine is visualized from C1 through C7. There is no evidence of acutefracture or subluxation. No prevertebral soft tissue swelling or significantdegenerative changes are visualized.IMPRESSION: No noncontrast CT evidenceof an acute intracranial abnormality, acute cervicalspine fracture or subluxation.[id number] 22:33:00 Test Item Value Reference Range Comments ACETAMINPH (test code = 94M) <2.0 ug/mL 10.0-30.0 COMPREHENSIVE METABOLIC [id number] 22:33:00 Test Item Value Reference Range Comments GLUCOSE (test code = 06D) 98 mg/dL 75-100 SODIUM (test code = 01A) 139 mmol/L 136-145 POTASSIUM (test code = 01B) 3.7 mmol/L 3.6-5.1 CHLORIDE (test code = 04A) 108 mmol/L 98-107 CO2 (test code = 02A) 18 mmol/L 22-32 ANION GAP (test code = ANG) 16.7 mmol/L BUN (test code = 05D) 16 mg/dL 7-18 CREATININE (test code = 03E) 1.1 mg/dL 0.4-1.1 BUN/CREA R (test code = BCR) 15 12-20 CALCIUM (test code = 09D) 9.3 mg/dL 8.3-9.5 BILI TOTAL (test code = 11A) 0.4 mg/dL 0.2-1.0 PROTEIN (test code = 07D) 7.1 g/dL 6.4-8.2 ALBUMIN (test code = 08D) 4.4 g/dL 3.5-4.8 GLOBULIN (test code = GLB) 2.7 g/dL 1.5-3.8 ALB/GLOB (test code = AGRR) 1.6 1.0-2.6 ALK PHOS (test code = 35A) 57 IU/L 42-121 AST (test code = 30A) 14 IU/L <=42 ALT (test code = 31A) 23 IU/L <=78 ALCOHOL BLOOD (ETOH)2017-02-02 22:33:00 Test Item Value Reference Range Comments ALCOHOL (test code = 56A) <10 mg/dL <=10 Ref Range Change (test code = Please note the change in REF RANGE) reference range CARDIAC [id number] 22:32:00 Test Item Value Reference Range Comments TROPONIN I (test code = A84) <0.015 ng/mL 0.000-0.045 CKMB (test code = A49) <1.0 ng/mL <=3.6 CPK (test code = 32A) 80 IU/L 26-192 [id number] 22:24:00 Test Item Value Reference Range Comments MAGNESIUM (test code = 48A) 1.9 mg/dL 1.8-2.4 DRUGS OF [id number] 22:23:00 Test Item Value Reference Range Comments DRUG SCRN (test code = HDOA) URINE DRUG SCREEN This is an unconfirmed screening result and should not be used for non-medical purposes CANNABINOD (test code = 88C) Negative NEGATIVE AMPHETHETM (test code = 84A) Negative NEGATIVE BENZODIAZP (test code = 86A) Negative NEGATIVE BARBITURAT (test code = 85A) Negative NEGATIVE OPIATES (test code = 92B) Negative NEGATIVE COCAINE (test code = 87A) Negative NEGATIVE PHENCYCLID (test code = 66A) Negative NEGATIVE METHADONE (test code = 64A) Negative NEGATIVE DOAH (test code = DOAH) URINE DRUG SCREEN Cut-off values are as follows: ---- Cannabinoids 50 ng/mL Cocaine 300 ng/mL Amphetamines 1000 ng/mL Phencyclidine 25 ng/mL Benzodiazepines 200 ng.mL Methadone 300 ng/mL Barbiturates 200 ng/mL Opiates 2000 ng/mL URINALYSIS WITH [id number] 22:22:00 Test Item Value Reference Range Comments COLOR (test code = COLU) YELLOW YELLOW CLARITY (test code = CLA) CLOUDY CLEAR GLUCOSE UR (test code = UA GLUCOSE) NEGATIVE NEGATIVE BILI UR (test code = BILE) NEGATIVE NEGATIVE KETONES UR (test code = TEO) NEGATIVE NEGATIVE SP GRAVITY (test code = SPGR) 1.022 1.005-1.030 PH UR (test code = PH) 5.5 4.5-8.0 PROTEIN UR (test code = PU) NEGATIVE NEGATIVE UROBIL UR (test code = UROQ) 0.2 EU/dL 0.2-1.0 NITRITE UR (test code = NITRITE) POSITIVE NEGATIVE BLOOD UR (test code = UA BLOOD) TRACE NEGATIVE LEUK ES UR (test code = LEUK) NEGATIVE NEGATIVE WBC UR (test code = UWBC) 4 /HPF 0-5 RBC UR (test code = URBC) 2 /HPF 0-2 EPITH UR (test code = UEPC) FEW /LPF FEW BACTERIA UR (test code = UBACT) MANY /HPF NONE CAST UR (test code = CAST) /LPF NONE CRYSTAL UR (test code = CRYU) / LPF NONE MUCUS UR (test code = MUC) MODERATE / HPF NONE AMORPH UR (test code = LEONID) FEW / HPF NONE TRICH UR (test code = UTRICH) /HPF NONE YEAST UR (test code = UY) /HPF NONE SPERM UR (test code = USPERM) /HPF NONE SERUM [id number] 22:20:00 Test Item Value Reference Range Comments PREG SRM (test code = PGS) NEGATIVE NEGATIVE PRO TIME AND [id number] 22:18:00 Test Item Value Reference Range Comments PT (test code = TT) 12.9 s 9.8-13.6 INR (test code = INR) 1.2 INRH (test code = INRH) SUGGESTED THERAPEUTIC RANGE FOR INR: 2.5 - 3.5 For Patients with Prosthetic Valves or Patients with recurrent Thromboembolic Events 2.0 - 3.0 For Most Other Applications PTT (test code = PTT) 30.5 s 20.2-38.0 PTTH (test code = PTTH) To monitor the effectiveness of heparin, we offer the Anti-Xa (Heparin Assay). It can be used for either unfractinated or LMW Heparin. Order Code is ANTI-XA CBC (INCLUDES AUTOMATED DIFFERENTIAL)2017-02-02 22:14:00 Test Item Value Reference Range Comments WBC (test code = WBC) 8.3 10\S\3/uL 4.5-11.0 RBC (test code = RBC) 3.93 10\S\6/uL 4.30-5.70 HGB (test code = HBG) 12.0 g/dL 12.0-15.5 HCT (test code = HCT) 35.2 % 35.0-44.0 MCV (test code = MCV) 89.6 fL 81.0-99.0 MCH (test code = MCH) 30.5 pg 27.0-31.0 MCHC (test code = MCHC) 34.1 g/dL 32.0-36.0 RDW (test code = RDW) 12.3 % 11.5-14.5 PLT (test code = PLT) 267 10\S\3/uL 130-400 MPV (test code = MPV) 11.6 fL 9.4-12.4 NEUTROP # (test code = NE#) 4.6 10\S\3/uL 1.6-8.0 LYMPH # (test code = LY#) 2.7 10\S\3/uL 1.1-3.5 MONOCYTE # (test code = MO#) 0.8 10\S\3/uL 0.0-1.1 EOSINOPH # (test code = EO#) 0.2 10\S\3/uL 0.0-0.7 BASOPHIL # (test code = BA#) 0.1 10\S\3/uL 0.0-0.3 IG # (test code = IG#) 0.02 10\S\3/uL 0.00-0.06 NRBC # (test code = NRBC#) 0.00 10\S\3/uL 0.00-0.01 NEUTROPH % (test code = NE%) 55.6 % 35.0-73.0 LYMPH % (test code = LY%) 32.4 % 20.0-55.0 MONO % (test code = MO%) 9.2 % 2.5-10.0 EOSINOPH % (test code = EO%) 1.9 % 0.0-5.0 BASOPHIL % (test code = BA%) 0.7 % 0.0-2.0 IG % (test code = IG%) 0.2 % 0.0-0.8 NRBC% (test code = NRBC%) 0.0 % 0.0-0.2 MANDIFF (test code = MDIFF) NO NO RBC MORPH (test code = RBCMOR) NORMAL
--- NOTE | 2020-02-23 20:56 | RAD REPORT ---
EXAM DESCRIPTION: CT - Head Brain Wo Cont - 02/23/2020 8:34 pm CLINICAL HISTORY: Seizure COMPARISON: None. TECHNIQUE: Computed axial tomography of the head was obtained. IV contrast was not requested. All CT scans are performed using dose optimization technique as appropriate and may include automated exposure control or mA/KV adjustment according to patient size. FINDINGS: An intracranial bleed is not seen . The ventricles are normal in caliber. No extra-axial fluid collection is noted. Fluid within the sinuses/ mastoids is not seen. IMPRESSION: No acute intracranial abnormality is seen. If patient's symptoms persist MRI of the bra in would be recommended.
[2020-02-23 21:21] LABS: Urine Blood TRACE (NEG); Urine Glucose NEGATIVE (NEG); Urine Protein NEGATIVE (NEG); Urine Specific Gravity 1.025 (1.005-1.030)
[2020-02-23 21:26] LABS: Absolute Lymphocytes (CBC) 3.2 K/uL (0.7-4.9); Basophils % 0.2 % (0-1.3); Hematocrit 37.3 % (36.0-45.0); Lymphocytes % 33.6 % (15.3-44.8); MPV 9.2 fL (7.6-11.3); RBC Red Blood Cell Count 4.14 M/uL (3.86-4.86)
[2020-02-23 21:32] LABS: ALT/SGPT 33 U/L (12-78); Albumin 4.1 g/dL (3.4-5.0); Alkaline Phosphatase 81 U/L (45-117); BUN Blood Urea Nitrogen 15 mg/dL (7-18); Bicarbonate 25 mmol/L (21-32); Bilirubin Direct < 0.1 mg/dL (0-0.2); Bilirubin Total 0.4 mg/dL (0.2-1.0); Glucose Level 106 mg/dL (74-106); Protein, Total 7.5 g/dL (6.4-8.2); Sodium Level 142 mmol/L (136-145)
[2020-02-23 21:32] LABS: Barbiturates NEGATIVE (NEGATIVE); Benzodiazepines NEGATIVE (NEGATIVE); Cocaine NEGATIVE (NEGATIVE); METHAMPHETAM NEGATIVE (NEGATIVE); Methadone NEGATIVE (NEGATIVE); Opiates NEGATIVE (NEGATIVE); Phencyclidine NEGATIVE (NEGATIVE); THC Cannibis NEGATIVE (NEGATIVE)
[2020-02-23 21:34] LABS: AST/SGOT 22 U/L (15-37); Potassium 3.6 mmol/L (3.5-5.1)
[2020-02-23 21:42] LABS: Blood Morphology Comment NOT SEEN (NOT SEEN); Platelet Estimate ADEQ; Urine White Blood Cell Casts OK
--- NOTE | 2020-02-23 22:00 | ER ---
Nurse's Notes [facility] Name: Lindsay Shaw Age: 34 yrs Sex: Female : 1985 Arrival Date: 02/23/2020 Time: 19:59 Bed 7 Private MD: Diagnosis: Recurrent seizures Presentation: 02/22 19:53 Chief complaint: Patient states: Toned to [facility], facility staff reports, having ea 3 witnessed seizures and one witnessed by EMS. Pt was noted to be having "convulsions". Coronavirus screen: Proceed with normal triage. Ebola Screen: No symptoms or risks identified at this time. Initial Sepsis Screen: Does the patient meet any 2 criteria? No. Patient's initial sepsis screen is negative. Does the patient have a suspected source of infection? No. Patient's initial sepsis screen is negative. Risk Assessment: Do you want to hurt yourself or someone else? Patient reports no desire to harm self or others. Onset of symptoms was February 23, 2020. 19:53 Method Of Arrival: EMS: [facility] ea 19:53 Acuity: RADHA 3 ea Triage Assessment: 20:04 General: Appears in no apparent distress. Behavior is drowsy. Pain: Denies pain. Neuro: ea Level of Consciousness is awake, alert, obeys commands, Oriented to person, place, time, situation. Derm: Skin is pink, warm \\T\\ dry. 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 - Social history:: Smoking status: Patient denies any tobacco usage or history of. Screenin:03 Abuse screen: Denies threats or abuse. Nutritional screening: No deficits noted. ea Tuberculosis screening: No symptoms or risk factors identified. Fall Risk None identified. Assessment: 21:34 Reassessment: Patient and/or family updated on plan of care and expected duration. Pain ea level reassessed. Patient is alert, oriented x 3, equal unlabored respirations, skin warm/dry/pink. 22:32 Reassessment: Patient and/or family updated on plan of care and expected duration. Pain ea level reassessed. Patient is alert, oriented x 3, equal unlabored respirations, skin warm/dry/pink. 23:18 Reassessment: Patient and/or family updated on plan of care and expected duration. Pain ea level reassessed. Patient is alert, oriented x 3, equal unlabored respirations, skin warm/dry/pink. 23:37 Reassessment: Patient and/or family updated on plan of care and expected duration. Pain ea level reassessed. Patient is alert, oriented x 3, equal unlabored respirations, skin warm/dry/pink. Report called to Jacquelyn SEQUEIRA, pt left ED via stretcher per tech, pt tolerating well. Vital Signs: 19:53 BP 121 / 74; Pulse 73; Resp 18; Temp 98.6; Pulse Ox 100% on R/A; Weight 135.17 kg; ea Height 5 ft. 11 in. (180.34 cm); 21:34 BP 120 / 73; Pulse 70; Resp 18; Pulse Ox 100% on R/A; ea 19:53 Body Mass Index 41.56 (135.17 kg, 180.34 cm) ea Dalton Coma Score: 20:04 Eye Response: spontaneous(4). Verbal Response: oriented(5). Motor Response: obeys ea commands(6). Total: 15. ED Course: 19:59 Patient arrived in ED. ea 20:00 Avtar Carrillo MD is Attending Physician. pkl 20:03 Triage completed. ea 20:04 Patient has correct armband on for positive identification. Bed in low position. Call ea light in reach. Side rails up X2. Seizure precautions initiated. teletypesetter monitor on. Pulse ox on. NIBP on. 20:04 Arm band placed on right wrist. Patient placed in an exam room, on a stretcher, on ea pulse oximetry. 20:22 Татьяна Davis, HUA is Primary Nurse. ea 20:34 CT Head Brain wo Cont In Process Unspecified. EDMS 21:10 Missed attempt(s): 22 gauge in right wrist. blood send. Bleeding controlled, band aid oe applied, catheter tip intact. 21:58 Ochoa Leigh MD is Hospitalizing Provider. pkl 22:36 Inserted saline lock: 24 gauge in right hand, using aseptic technique. ea 22:36 No provider procedures requiring assistance completed. Patient admitted, IV remains in ea place. Administered Medications: No medications were administered Outcome: 21:59 Decision to Hospitalize by Provider. pkl 22:36 Condition: stable ea 22:36 Instructed on the need for admit. 23:37 Admitted to Med/surg accompanied by tech, room 229, with chart, Report called to Jacquelyn camacho RN 23:38 Patient left the ED. ea Signatures: Dispatcher [employer] EDMS Avtar Carrillo MD MD pkMark Ugarte Elena, RN RN doug Corrections: (The following items were deleted from the chart) 20:16 19:53 Chief complaint: Patient states: Toned to [facility], facility staff reports, ea having 3 witnessed seizures and one witnessed by EMS. Pt was noted to be having "convulsions" ea 21:20 21:10 Missed attempt(s): 22 gauge Bleeding controlled, band aid applied, catheter tip oe intact. oe
--- NOTE | 2020-02-23 22:00 | EDPHYS ---
Physician Documentation [facility] Name: Lindsay Shaw Age: 34 yrs Sex: Female : 1985 Arrival Date: 02/23/2020 Time: 19:59 Bed 7 Private MD: ED Physician Avtar Carrillo HPI: 02/22 20:20 This 34 yrs old Female presents to ER via EMS with complaints of Seizure. pkl 20:20 The patient presents with a history of multiple seizures, a total of 3. Character of pkl seizure(s): Loss of consciousness: the patient experienced loss of consciousness, brief, Motor activity: generalized. Patient said she has H/O of seizures. 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 Patient at present staying at [facility] for substance abuse.. Patient was seen in this Er last week for similar complaints. 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 - Social history:: Smoking status: Patient denies any tobacco usage or history of. ROS: 20:20 Eyes: Negative for injury, pain, redness, and discharge, ENT: Negative for injury, pkl pain, and discharge, Neck: Negative for injury, pain, and swelling, Cardiovascular: Negative for chest pain, palpitations, and edema, Respiratory: Negative for shortness of breath, cough, wheezing, and pleuritic chest pain, Abdomen/GI: Negative for abdominal pain, nausea, vomiting, diarrhea, and constipation, Back: Negative for injury and pain, : Negative for injury, bleeding, discharge, and swelling, MS/Extremity: Negative for injury and deformity, Skin: Negative for injury, rash, and discoloration. 20:20 Neuro: Positive for loss of consciousness, seizure activity. Exam: 20:20 Head/Face: Normocephalic, atraumatic. Eyes: Pupils equal round and reactive to light, pkl extra-ocular motions intact. Lids and lashes normal. Conjunctiva and sclera are non-icteric and not injected. Cornea within normal limits. Periorbital areas with no swelling, redness, or edema. ENT: Nares patent. No nasal discharge, no septal abnormalities noted. Tympanic membranes are normal and external auditory canals are clear. Oropharynx with no redness, swelling, or masses, exudates, or evidence of obstruction, uvula midline. Mucous membranes moist. Neck: Trachea midline, no thyromegaly or masses palpated, and no cervical lymphadenopathy. Supple, full range of motion without nuchal rigidity, or vertebral point tenderness. No Meningismus. Chest/axilla: Normal chest wall appearance and motion. Nontender with no deformity. No lesions are appreciated. Cardiovascular: Regular rate and rhythm with a normal S1 and S2. No gallops, murmurs, or rubs. Normal PMI, no JVD. No pulse deficits. Respiratory: Lungs have equal breath sounds bilaterally, clear to auscultation and percussion. No rales, rhonchi or wheezes noted. No increased work of breathing, no retractions or nasal flaring. Abdomen/GI: Soft, non-tender, with normal bowel sounds. No distension or tympany. No guarding or rebound. No evidence of tenderness throughout. Back: No spinal tenderness. No costovertebral tenderness. Full range of motion. Skin: Warm, dry with normal turgor. Normal color with no rashes, no lesions, and no evidence of cellulitis. MS/ Extremity: Pulses equal, no cyanosis. Neurovascular intact. Full, normal range of motion. Neuro: Awake and alert, GCS 15, oriented to person, place, time, and situation. Cranial nerves II-XII grossly intact. Motor strength 5/5 in all extremities. Sensory grossly intact. Cerebellar exam normal. Normal gait. Vital Signs: 19:53 BP 121 / 74; Pulse 73; Resp 18; Temp 98.6; Pulse Ox 100% on R/A; Weight 135.17 kg; ea Height 5 ft. 11 in. (180.34 cm); 21:34 BP 120 / 73; Pulse 70; Resp 18; Pulse Ox 100% on R/A; ea 19:53 Body Mass Index 41.56 (135.17 kg, 180.34 cm) ea [place] Coma Score: 20:04 Eye Response: spontaneous(4). Verbal Response: oriented(5). Motor Response: obeys ea commands(6). Total: 15. MDM: 20:00 Patient medically screened. pkl 21:57 Data reviewed: vital signs, nurses notes, lab test result(s), radiologic studies, CT pkl scan. ED course: talked to Dr. Leigh, for observation. 02/22 20:15 Order name: CBC with Diff; Complete Time: 22:00 pkl 02/22 20:15 Order name: Chem 7; Complete Time: 21:35 pkl 02/22 20:15 Order name: LFT's; Complete Time: 21:35 pkl 02/22 20:15 Order name: UDS; Complete Time: 21:35 pkl 02/22 21:20 Order name: Urine Dipstick--Ancillary (enter results) [facility] 02/22 21:20 Order name: Urine --Ancillary (enter results) [facility] 02/22 21:20 Order name: Urine Dipstick-Ancillary; Complete Time: 21:31 EDMS 02/22 21:20 Order name: Urine --Ancillary; Complete Time: 21:31 EDMS 02/22 21:42 Order name: CBC Smear Scan; Complete Time: 22:00 EDMS 02/22 22:51 Order name: CBC with Automated Diff [facility] 02/22 22:51 Order name: CBC with Automated Diff [facility] 02/22 22:51 Order name: Comprehensive Metabolic Panel [facility] 02/22 22:51 Order name: Comprehensive Metabolic Panel [facility] 02/22 22:51 Order name: Creatine Phosphokinase [facility] 02/22 20:15 Order name: CT Head Brain wo Cont; Complete Time: 20:58 pkl 02/22 20:19 Order name: Saline Lock; Complete Time: 20:40 pkl 02/22 22:51 Order name: CONS Pharmacy Consult [facility] 02/22 22:51 Order name: Regular ED[facility] 02/22 22:51 Order name: Creatine Phosphokinase [facility] 02/22 22:51 Order name: Lactate [facility] 02/22 22:51 Order name: Lactate [facility] 02/22 22:51 Order name: Prolactin [facility] 02/22 22:51 Order name: Prolactin ED[facility] Administered Medications: No medications were administered Disposition: 02/23/20 21:59 Hospitalization ordered by Ochoa Leigh for Observation. Preliminary diagnosis is Recurrent seizures. - Bed requested for Telemetry/MedSurg (observation). - Status is Observation. ea - Condition is Stable. - Problem is new. - Symptoms have improved. Signatures: Dispatcher [employer] EDMS Avtar Carrillo MD MD pkl Jazmyne Rasmussen RN RN lp1 Татьяна Davis RN RN ea Corrections: (The following items were deleted from the chart) 22:52 21:59 Hospitalization Ordered by Ochoa Leigh MD for Observation. Preliminary lp1 diagnosis is Recurrent seizures. Bed requested for Telemetry/MedSurg (observation). Status is Observation. Condition is Stable. Problem is new. Symptoms have improved. pkl 23:38 22:52 02/23/2020 21:59 Hospitalization Ordered by Ochoa Leigh MD for Observation. ea Preliminary diagnosis is Recurrent seizures. Bed requested for Telemetry/MedSurg (observation). Status is Observation. Condition is Stable. Problem is new. Symptoms have improved. lp1
[2020-02-23] MEDS ORDERED: ONDANSETRON 4 MG/2 ML VIAL IV PRN (22:47)
[2020-02-23] MEDS ORDERED: LORazepam 2 MG/ML VIAL IV PRN (22:47)
[2020-02-23] MEDS ORDERED: ACETAMINOPHEN 500 MG TAB PO PRN (22:47)
[2020-02-23] MEDS ORDERED: levETIRAcetam 500 MG in NA CHLORIDE 0.9% 100 ML IV SCH (23:00)
[2020-02-24 00:24] VITALS: BMI 41.4
[2020-02-24] MEDS ORDERED: NA CHLORIDE 0.9% 100 ML ONE (00:48)
[2020-02-24] MEDS: NA CHLORIDE 0.9% 1,000 ML IV SCH ×2 (00:49→09:00)
[2020-02-24] MEDS: MORPHINE 2 MG/ML SYR IV PRN ×2 (00:50→09:09)
--- NOTE | 2020-02-24 02:30 | P.HP ---
Certification for Inpatient Patient admitted to: Observation With expected LOS: <2 Midnights Patient will require the following post-hospital care: None Practitioner: I am a practitioner with admitting privileges, knowledge of patient current condition, hospital course, and medical plan of care. Services: Services provided to patient in accordance with Admission requirements found in Title 42 Section 412.3 of the Code of Federal Regulations Patient History Date of Service: 02/23/20 Reason for admission: Pseudoseizures History of Present Illness: Patient is a 34yo who was admitted to the hospital for GTC seizures. Patient with a history of pseudoseizures. She states she has had a prior EEG performed and at that time it was felt she may have had this pseudoseizures. She does not take antiepileptics. She has not had any seizure medication in over a year and a half. She has been at [facility] which is a drug and alcohol rehab facility. She has been doing well after facility. At this time she would get worked up for her seizure but I anticipate patient be able to transfer back over the next 24-48 hours unless we find some new concerning neurologic information. Allergies No Known Allergies Allergy (Verified 02/24/20 00:03) Home Medications: Buspirone HCl [Buspar] 20 mg PO TID 02/24/20 Furosemide [Lasix*] 20 mg PO DAILY 02/24/20 Gabapentin 600 mg PO TID 02/24/20 [place] Carbonate [Lithotabs *] 600 mg PO BID 02/24/20 Lurasidone HCl [Latuda] 20 mg PO BEDTIME 02/24/20 Potassium Chloride 10 meq PO DAILY 02/24/20 Trazodone [Desyrel*] 150 mg PO BEDTIME PRN 02/24/20 hydrOXYzine HCL [Atarax] 100 mg PO QID 02/24/20 - Past Medical/Surgical History Has patient received pneumonia vaccine in the past: No Diabetic: No -: ptsd -: pcos -: endometriosis -: bipolar disease -: seizure Past Surgical History: Patient denies surgical history - Family History Father Family History: Reviewed- Non-Contributory - Social History Smoking Status: Current some day smoker Alcohol use: No CD- Drugs: No Review of Systems 10-point ROS is otherwise unremarkable Physical Examination - Vital Signs Temperature: 97.1 F Blood Pressure: 118/59 Pulse: 67 Respirations: 18 Pulse Ox (%): 98 - Physical Exam General: Alert, In no apparent distress, Oriented x3 HEENT: Atraumatic, PERRLA, Mucous membr. moist/pink, EOMI, Sclerae nonicteric Neck: Supple, 2+ carotid pulse no bruit, No LAD, Without JVD or thyroid abnormality Respiratory: Clear to auscultation bilaterally, Normal air movement Cardiovascular: Regular rate/rhythm, Normal S1 S2, No murmurs Gastrointestinal: Normal bowel sounds, Soft and benign, Non-distended, No tenderness Musculoskeletal: No clubbing, No swelling, No tenderness Integumentary: No rashes Neurological: Normal gait, Normal speech, Normal strength at 5/5 x4 extr, Normal tone, Sensation intact, Cranial nerves 3-12 intact, Normal affect Lymphatics: No axilla or inguinal lymphadenopathy - Studies Laboratory Data (last 24 hrs) 02/23/20 20:57: Sodium 142, Potassium 3.6, BUN 15, Creatinine 1.19, Glucose 106, Total Bilirubin 0.4, AST 22, ALT 33, Alkaline Phosphatase 81 02/23/20 20:57: WBC 9.6 D, Hgb 12.5, Hct 37.3, Plt Count 243 Assessment & Plan - Problems (Diagnosis) (1) Pseudoseizures Current Visit: Yes Status: Acute - Plan Plan: 1. Continue with antiepileptics 2. EEG in the morning 3. Neurologic consultation in the morning 4. Anxiolytics continued to be prescribed 5. Monitor labs closely 6. Anticipate transfer back to rehab w/in 24-48 hours Discharge Plan: Home Plan to discharge in: Greater than 2 days - Advance Directives Does patient have a Living Will: No Does patient have a Durable POA for Healthcare: No - Code Status/Comfort Care Code Status Assessed: Yes Code Status: Full Code Critical Care: No Time Spent Managing PTS Care (In Minutes): 45
[2020-02-24 06:20] LABS: Absolute Lymphocytes (CBC) 3.1 K/uL (0.7-4.9); Basophils % 1.3 % (0-1.3); Hematocrit 33.9 % (36.0-45.0); Lymphocytes % 39.9 % (15.3-44.8); MPV 8.9 fL (7.6-11.3); RBC Red Blood Cell Count 3.73 M/uL (3.86-4.86)
[2020-02-24 06:51] LABS: Albumin 3.4 g/dL (3.4-5.0); Bilirubin Total 0.5 mg/dL (0.2-1.0); Potassium 3.6 mmol/L (3.5-5.1); Protein, Total 6.2 g/dL (6.4-8.2)
[2020-02-24] MEDS: levETIRAcetam 500 MG in NA CHLORIDE 0.9% 100 ML IV SCH ×2 (09:00→21:55)
[2020-02-24] MEDS: clonazePAM 0.5 MG TAB PO SCH ×3 (09:01→21:55)
[2020-02-24 09:17] VITALS: O2SAT 98
--- NOTE | 2020-02-24 12:54 | P.PN ---
Subjective Date of Service: 02/24/20 (Hospital in) Chief Complaint: Pseudoseizures Subjective: Improving (Patient is doing well admitted with seizures awaiting Neurology console no complaints now last seizure was 6 7 months ago denies any he weakness) Review of Systems Unremarkable Physical Examination - Vital Signs Temperature: 97.6 F Blood Pressure: 97/50 Pulse: 62 Respirations: 20 Pulse Ox (%): 98 - Physical Exam General: Alert, In no apparent distress, Oriented x3 Respiratory: Clear to auscultation bilaterally Cardiovascular: No edema, Regular rate/rhythm Gastrointestinal: Normal bowel sounds, Soft and benign Musculoskeletal: No clubbing Neurological: Normal gait, Normal strength at 5/5 x4 extr, Normal tone, Cranial nerves 3-12 intact - Studies Laboratory Data (last 24 hrs) 02/23/20 20:57: Sodium 142, Potassium 3.6, BUN 15, Creatinine 1.19, Glucose 106, Total Bilirubin 0.4, AST 22, ALT 33, Alkaline Phosphatase 81 02/23/20 20:57: WBC 9.6 D, Hgb 12.5, Hct 37.3, Plt Count 243 Assessment & Plan - Problems (Diagnosis) (1) Seizures Current Visit: Yes Status: Acute Plan: Patient is 34 years of age admitted with possible seizures here await Neurology Consul CT of the head is negative laboratory data tox screen is also negative Dc IV fluids resume regular diet possible discharge depending upon neurology evaluation Discharge Plan: Home Plan to discharge in: 24 Hours
[2020-02-24] MEDS ORDERED: PHENYTOIN Inj 1,000 MG in NA CHLORIDE 0.9% 100 ML IV ONE (14:00)
[2020-02-24] MEDS ORDERED: PHENYTOIN ER 100 MG CAP PO SCH (21:00)
--- NOTE | 2020-02-24 21:16 | CON ---
Reason For Consultation: Possible seizures versus pseudoseizures. History Of Present Illness: Ms. Shaw is a 34-year-old right-handed patient with psychiatr ic diagnoses including posttraumatic stress disorder, bipolar disorder, on multiple psychiatric medic ations including lithium and trazodone along with buspirone in addition to Latuda and who has a histo ry of reported pseudoseizures proven by long-term monitoring, now is admitted with an apparent genera lized tonic-clonic seizure that included tongue biting, loss of urine control and shaking all over. There is no clear description of the event, but the patient did say she lost urine control and bit he r tongue during the episode, and at least a couple of months ago, had a similar event. The prior mon itoring did not include or capture events as described, but she had minor episodes, during which ther e was no EEG associated change and she was therefore labeled with total seizures. She was not taking antiepileptic medications. It should be noted that the patient was previously seen at [facility] drug and alcohol rehabilitation facility and reportedly was doing well after that. Since hospitaliza tion, she was not started on antiepileptic medications; however, she is on gabapentin 600 mg 3 times daily apparently for neuropathic symptoms. Her head CT scan at [facility] was unremarkable. She said remotely she had a brain MRI, which also was unremarkable. She has had no further seizure-like episodes since her admission. Past Medical History: As indicated. Allergies: NO KNOWN DRUG ALLERGIES. Medications: At home, BuSpar 20 mg 3 times a day, Lasix 20 mg daily, gabapentin 600 mg 3 times daily , lithium carbonate 600 mg twice daily, Latuda 20 mg at bedtime, potassium chloride 10 mEq daily, tra zodone 100 mg at bedtime, Atarax 100 mg 4 times daily. Past Medical History: Includes endometriosis and polycystic ovary syndrome. Family History: Noncontributory. Social History: Smokes tobacco cigarettes regularly. No alcohol and drug use. It should be noted h er drug screen was negative at this hospital, except for benzodiazepines. Review of Systems: She denies any recent fevers, chills, nausea, vomiting, myalgias, arthralgias, headache, weight wyman e, rash, exposure to coronavirus. No recent travel abroad. Physical Examination: Vital Signs: Blood pressure 110/67, pulse 65, respiratory rate 18, temperature 97.8, oxygen saturati on 98% on room air. Weight 297 pounds. Height 5 feet 11 inches, BMI 41.4. General: Ms. Shaw is resting in bed. She is in no acute distress. She is normocephalic, atraumati c. Sclerae anicteric. Oropharynx is pink and moist. Neck: Supple. Chest: Clear. Heart: Regular. Extremities: Show no clubbing, cyanosis, or edema. Neurological: She is alert and oriented to person, place, time, and situation. She has no expressiv e or receptive aphasias. Cranial nerves 2 through 12 are intact by exam. Motor examination, she has normal bulk and tone in the arms and legs with 5/5 strength proximally and distally. Sensory examin ation intact to light touch, pinprick, temperature in the arms and legs. Coordination intact in the upper and lower extremities. Reflexes 2+ in the upper and lower extremities. Gait normal stance, ri ght arm swing. Laboratory Studies: Complete blood count with differential essentially normal. Chemistries essentia lly normal. Liver function studies are normal. Prolactin is pending. Lactic acid 0.5. Urinalysis shows trace blood, otherwise normal. Toxicology actually completely negative. Assessment: Ms. Shaw is a 34-year-old patient with possible seizures and pseudoseizures and she has a psychiatric history of bipolar disorder on multiple psychiatric medications and posttraumatic stre ss disorder. Plan: 1.We will low Dilantin 1 g, fosphenytoin, and then 300 mg Dilantin at night. 2.We will get brain MRI epilepsy protocol if available. 3.The patient should be discharged home on Dilantin 300 mg at night. May follow up in Dr. Scanlon' s clinic 1 month later and Dilantin blood level should be drawn. 4.Follow up with Psychiatry for psychiatric conditions as described. TOM/SAL Voice ID: [id number] Report ID: [id number]
[2020-02-24] MEDS ORDERED: NA CHLORIDE 0.9% 500 ML ONE (22:10)
[2020-02-25] MEDS: levETIRAcetam 500 MG in NA CHLORIDE 0.9% 100 ML IV SCH (09:55)
[2020-02-25] MEDS: clonazePAM 0.5 MG TAB PO SCH ×2 (09:55→13:14)
[2020-02-25 12:35] VITALS: BP 127/61; TEMP 97.2
--- NOTE | 2020-02-25 13:29 | P.DS ---
Admission Date: 02/23/20 Discharge Date: 02/25/20 Disposition: TRANSFER TO INPATIENT REHAB Discharge Condition: GOOD Reason for Admission: Pseudoseizures - Problems (1) Pseudoseizures Current Visit: Yes Status: Acute (2) Seizures Current Visit: Yes Status: Acute Brief History of Present Illness: Jossue is a 34-year-old female with morbid obesity, polysubstance abuse, currently in rehab, PTSD. She presented to the hospital with suspected episodes of generalized tonic-clonic seizure. She developed vaginal a shaking and had evidence of urinary incontinence. Neurology was consulted and recommended a loading dose of Dilantin follow by chronic maintenance dose of Dilantin. A CT head was unremarkable. Neurology had initially recommended MRI of the brain about this could not be done system patient was down. The Neurology was reconsulted and they cleared the patient for discharge on Dilantin 300 mg every evening. Patient can follow up with Neurology in 1 week for Dilantin level. Vital Signs/Physical Exam: Temp Pulse Resp BP Pulse Ox 97.2 F 68 20 127/61 98 02/25/20 12:00 02/25/20 12:00 02/25/20 12:00 02/25/20 12:00 02/25/20 12:00 General: In no apparent distress, Oriented x3 HEENT: Atraumatic, Normocephalic, PERRLA Neck: Supple Respiratory: Clear to auscultation bilaterally, Normal air movement Cardiovascular: No edema, Normal pulses, Regular rate/rhythm, Normal S1 S2 Gastrointestinal: Normal bowel sounds, Soft and benign, Non-distended Musculoskeletal: No clubbing, No swelling, No contractures, No erythema, No tenderness, No warmth Integumentary: No rashes, No breakdown, No significant lesion, No te nderness/swelling, No erythema, No warmth Neurological: Normal speech, Normal strength at 5/5 x4 extr, Normal tone, Sensation intact Laboratory Data at Discharge: WBC 7.7 K/uL (4.3-10.9) D 02/24/20 05:43 Hgb 11.3 g/dL (12.0-15.0) L 02/24/20 05:43 Hct 33.9 % (36.0-45.0) L 02/24/20 05:43 Plt Count 274 K/uL (152-406) 02/24/20 05:43 Sodium 144 mmol/L (136-145) 02/24/20 05:43 Potassium 3.6 mmol/L (3.5-5.1) 02/24/20 05:43 BUN 17 mg/dL (7-18) 02/24/20 05:43 Creatinine 1.06 mg/dL (0.55-1.3) 02/24/20 05:43 Glucose 99 mg/dL (74-106) 02/24/20 05:43 Total Bilirubin 0.5 mg/dL (0.2-1.0) 02/24/20 05:43 AST 13 U/L (15-37) L 02/24/20 05:43 ALT 27 U/L (12-78) 02/24/20 05:43 Alkaline Phosphatase 67 U/L (45-117) 02/24/20 05:43 Home Medications: Buspirone HCl [Buspar] 20 mg PO TID 02/24/20 Furosemide [Lasix*] 20 mg PO DAILY 02/24/20 Gabapentin 600 mg PO TID 02/24/20 Mckenzie Carbonate [Lithotabs *] 600 mg PO BID 02/24/20 Lurasidone HCl [Latuda] 20 mg PO BEDTIME 02/24/20 Potassium Chloride 10 meq PO DAILY 02/24/20 Trazodone [Desyrel*] 150 mg PO BEDTIME PRN 02/24/20 hydrOXYzine HCL [Atarax] 100 mg PO QID 02/24/20 Diet: Regular
--- NOTE | 2020-02-27 09:08 | EEG ---
CHART: [id number] TEST ID#: [id number] DATE OF STUDY: 02/24/2020 THE EEG WAS RECORDED PORTABLE IN THE PATIENT'S ROOM ON A 17 CHANNEL MACHINE. ELECTRODES WERE APPLIED IN THE USUAL MANNER USING THE INTERNATIONAL 10-20 SYSTEM. THE WAKING BACKGROUND RHYTHM IN THIS RECORD CONSISTS OF WELL DEVELOPED AND WELL ORGANIZED WAVES OF 9 HZ., MAXIMAL IN THE POSTERIOR HEAD REGIONS WHICH ATTENUATE NORMALLY WITH EYE OPENING. LOW-VOLTAGE 18-22HZ ACTIVITY IS EXPRESSED IN THE FRONTAL REGIONS. THERE ARE NO FOCAL OR LATERALIZING FEATURES. NO EPILEPTIFORM ACTIVITY APPEARS. SLEEP OCCURRED NATURALLY. IN ADDITION NORMAL SLEEP PATTERNS ARE PRESENT. HYPERVENTILATION WAS PERFORMED WELL AND PRODUCED NO SIGNIFICANT CHANGE. PHOTIC STIMULATION PRODUCED FAIR DRIVING BILATERALLY. IMPRESSION: NORMAL EEG FOR THE AGE OF THE PATIENT IN [place], DROWSINESS AND SLEEP.
== END 2020-02-25 15:15 | disposition home or self-care (01) | DRG 101 ==
LOC: ER 19:56 → OBSVTOIN 23:01 → ERHOLD 23:01 → 2ND 23:27
PROVIDERS: ADMIT Hospitalist; ATTEND Internal Medicine
DX: G40.409 Other generalized epilepsy and epileptic syndromes, not intractable, without status epilepticus (principal); Z68.41 Body mass index [BMI] 40.0-44.9, adult; E66.01 Morbid (severe) obesity due to excess calories; F19.10 Other psychoactive substance abuse, uncomplicated; F43.10 Post-traumatic stress disorder, unspecified; F31.9 Bipolar disorder, unspecified; F17.200 Nicotine dependence, unspecified, uncomplicated; Z79.899 Other long term (current) drug therapy
CPT/HCPCS: 36415; 70450; 80048; 80053; 80076; 80185; 80307; 81003; 81025; 82550; 83605; 84146; 85025; 95819; 99285; J1165; J1953; J2270; J7030; J7040